=== PATIENT | female | born 1945 | race Caucasian/White ===

== ENCOUNTER 2019-11-19 10:50 | Inpatient (IN) | payer MEDICARE, OTHER ==
[~2019-11-19 10:50] MED LIST: CEFAZOLIN 2 Gram 2 GM/50 ML BAG IVPB ONE; CELECOXIB 100 MG CAPSULE PO ONE; FAMOTIDINE 20MG TABLET PO ONE; MECLIZINE 25 MG TABLET PO ONE; METOCLOPRAMIDE 10 MG TABLET PO ONE; VANCOMYCIN 1GM/200ML PREMIX 1 GM/200 ML PIGGYBACK IVPB ONE
[2019-11-19 12:01] LABS: ABO GROUP O; ANTIBODY SCREEN NEGATIVE (NEGATIVE); RH TYPE POSITIVE
[2019-11-19] MEDS ORDERED: RINGERS SOLUTION,LACTATED 1,000 ML IV ONE ×2 (12:15→13:55)
[2019-11-19] MEDS ORDERED: TRANEXAMIC ACID 1,000 MG/10 ML ML IU ONE (13:55)
[2019-11-19] MEDS ORDERED: BUPIVACAINE 0.5% W/EPI MPF 30 ML VIAL IU ONE (13:55)
[2019-11-19] MEDS ORDERED: TRANEXAMIC ACID 1,000 MG/10 ML ML IVPB ONE (13:55)
[2019-11-19] MEDS ORDERED: KETOROLAC 30 MG/ML VIAL IVP PRN (14:41)
[2019-11-19] MEDS ORDERED: HYDROMORPHONE HCL 2 MG/ML VIAL IM PRN (14:41)
[2019-11-19] MEDS ORDERED: TRAMADOL HCL 50 MG TABLET PO PRN (14:41)
[2019-11-19] MEDS ORDERED: ZOLPIDEM TARTRATE 5 MG TABLET PO PRN (14:41)
[2019-11-19] MEDS ORDERED: AL HYDROX/MAG HYDROX 30ML UD PO PRN (14:41)
[2019-11-19] MEDS ORDERED: HYDROCODONE/APAP 10/325 TABLET PO PRN (14:41)
[2019-11-19] MEDS ORDERED: BISACODYL 10 MG SUPP RC PRN (14:41)
[2019-11-19] MEDS ORDERED: DIPHENHYDRAMINE HCL 25 MG CAPSULE PO PRN (14:41)
[2019-11-19] MEDS ORDERED: ONDANSETRON HCL IV 4 MG/2 ML VIAL IVP PRN (14:41)
[2019-11-19] MEDS ORDERED: NALOXONE 0.4 MG/1 ML VIAL IVP PRN (14:41)
[2019-11-19] MEDS ORDERED: ACETAMINOPHEN 325 MG TAB PO PRN (14:41)
[2019-11-19] MEDS ORDERED: MAGNESIUM HYDROXIDE 30 ML UDC PO PRN (14:41)
[2019-11-19] MEDS: HYDROCODONE/APAP 10/325 TABLET PO PRN ×2 (16:04→23:20)
[2019-11-19] MEDS: POTASSIUM CHLORIDE/D5-0.9%NACL 20 MEQ/1,000 ML BAG IV SCH ×2 (20:37→23:00)
[2019-11-19] MEDS: CEFAZOLIN 2 Gram 2 GM/50 ML BAG IVPB SCH (20:37)
[2019-11-19] MEDS ORDERED: SIMVASTATIN 10MG TABLET PO SCH (22:00)
[2019-11-19] MEDS: DOCUSATE SODIUM 100 MG CAPSULE PO SCH (22:59)
[2019-11-20] MEDS: HYDROCODONE/APAP 10/325 TABLET PO PRN (05:13)
[2019-11-20] MEDS: CEFAZOLIN 2 Gram 2 GM/50 ML BAG IVPB SCH ×2 (05:14→12:38)
[2019-11-20 07:29] LABS: HEMATOCRIT 33.2 % (35.0-47.0); HEMOGLOBIN 10.7 gm/dl (11.6-16.0)
[2019-11-20 07:42] LABS: BLOOD UREA NITROGEN 19 mg/dL (8-23); CREATININE 0.6 mg/dL (0.5-0.9); EST GLOMERULAR FILTRATION RATE > 60 mL/min; GLUCOSE,RANDOM 186 mg/dL (74-109)
--- NOTE | 2019-11-20 09:12 | Rehab Evaluation ---
Patient Information - Patient Information Diagnosis: LEFT HIP OA Ordered Treatment: OT Evaluate and Treat Status: Initial Evaluation Surgery: Yes (left DENA 11/19/19) Past Medical/Surgical Hx: PAST MEDICAL/SURGICAL HISTORY Past Surgical History RTHA TONSILS BILAT CATARACTS PMH - Respiratory Hx Respiratory Disorders No PMH - Cardiovascular Hx Cardiovascular Disorders Yes Hx Hypertension Yes: WELL CONTROLLED WITH MEDS Exercise Tolerance Fair Comment: USES WALKER D/T HIP PAIN PMH - Neuro Hx Neurological Disorders No PMH - GI Hx Gastrointestinal Disorders No PMH - Hx Genitourinary Disorders No PMH - Endocrine Hx Endocrine Disorders Yes Hx Diabetes Yes: DX'D 2010 Hx of NIDDM Yes: DIET ONLY Comment: BLOOD SUGARS 120 OR BELOW A1C 6.7 PMH - Musculoskeletal Hx Musculoskeletal Disorders Yes Hx Arthritis Yes: HANDS, ANKLES, LEFT HIP PMH - Psych Hx Psychiatric Problems No PMH - Hematology/Oncology Hx Hematology/Oncology No Disorders Premorbid Status: Detail (Pt lives alone in a 1 1/2 story house with basement. Her laundry is in the basement. She has 2 steps onto a deck with nikolai railings and 2 steps into the kitchen with 1 railing. She has a tub/shower combination with a shower seat but no grab bars and a standard height toilet, no grab bars. She is typically Ind with all ADLs and IADLs although she has multiple friends who will be assisting her after discharge. She has a 2 wheeled walker, straight line edger and sock aid.) Precautions: [place], Fall, Other (Total hip precautions) - Time With Patient Total Time Spent With Patient (Min): 45 Treatment Procedures: Detail (OT eval low complexity) Subjective Information - Subjective Information Per Patient Objective Data - Pain Pain Present: Yes (12/08) - Mental Status Patient Orientation: Oriented x3 - Visual Perception Appears within normal limits for therapeutic activities - ROM Within normal limits (Nikolai UE AROM WNL) - Strength/Tone Within normal limits (Nikolai UE strength WNL) - Coordination Appears within normal limits for therapeutic activities - Bed Mobility Independent (Ind with supine to sit and sit to supine) - Transfers Independent (Ind with sit to stand from EOB) - Balance Balance Sitting: Good Balance Standing: Good - Sensation Intact - Gait Detail (Pt ambulating in hallway with walker and supervision.) - ADL's/IADL's Detail (Pt educated and able to demonstrate learning of modified LE dressing techniques using adaptive equipment including doffing briefs and slipper socks and donning underwear, sweatpants, socks and tennis shoes using straight line edger, sock aid and long shoe horn. Reviewed kitchen, shower and laundry safety and modifications, pt verbalized understanding.) Therapy Assessment - Therapy Assessment Detail (Pt is Ind with modified LE dressing techniques.) Problem List - Problem List Occupational Therapy Problem List: Detail (No current IP OT problems identified.) Goals - Goals Occupational Therapy Goals: No current IP OT goals identified. Prognosis - Prognosis Good Plan - Plan Occupational Therapy Plan: Pt is discharged from IP OT. Thank you for this referral.
[2019-11-20] MEDS ORDERED: DEXAMETHASONE 4 MG/ML 1ML VIAL IVP ONE (09:25)
[2019-11-20] MEDS ORDERED: ROPIVACAINE HCL (NAROPIN) /PF 5MG/ML 20ML VIAL IV ONE (09:25)
[2019-11-20] MEDS: DOCUSATE SODIUM 100 MG CAPSULE PO SCH (09:42)
[2019-11-20] MEDS: POTASSIUM CHLORIDE/D5-0.9%NACL 20 MEQ/1,000 ML BAG IV SCH (09:48)
[2019-11-20] MEDS ORDERED: FERROUS SULFATE 325 MG TAB PO SCH (10:00)
[2019-11-20] MEDS ORDERED: RIVAROXABAN 10 MG TABLET PO SCH (10:00)
[2019-11-20] MEDS ORDERED: HYDROCHLOROTHIAZIDE 12.5 MG CAPSULE PO SCH (10:00)
[2019-11-20] MEDS ORDERED: LISINOPRIL 20 MG TABLET PO SCH (10:00)
--- NOTE | 2019-11-20 12:34 | Discharge Summary ---
DATE OF ADMISSION: 11/19/2019 DATE OF DISCHARGE: 11/20/2019 DATE OF SURGERY: 11/19/2019 HISTORY: The patient is a delightful 74-year-old female who presents for end stage arthrosis of her left hip. She was admitted after left total hip arthroplasty. Postoperatively she did well. Her hospital course was unremarkable. Discharge hemoglobin was 10.7. The plan is to discharged her home in the care of her family. She was given [place] for pain and Xarelto followed by aspirin for DVT prophylaxis. Visiting nurse will remove her sutures in two weeks. She will follow-up in my office in four weeks. FINAL DIAGNOSIS: END STAGE ARTHROSIS OF THE LEFT HIP. SECONDARY DIAGNOSIS: OPERATIVE BLOOD LOSS ANEMIA. DISCHARGE CONDITION: Good. OPERATIONS AND PROCEDURES: CEMENTLESS LEFT TOTAL HIP ARTHROPLASTY. JOB NUMBER: [id number] MTDD
--- NOTE | 2019-11-20 13:01 | Operative Note ---
DATE OF SURGERY: 11/19/2019 PREOPERATIVE DIAGNOSIS: End-stage arthrosis of the left hip. POSTOPERATIVE DIAGNOSIS: End-stage arthrosis of the left hip. OPERATION: Cementless left total hip arthroplasty using Mixon and Nephew components with a size 52 no-hole Reflection cup, 32 mm diameter 35-degree offset liner, a size 15 standard-offset cementless [place] stem with a -3 cobalt chrome head. STAFF SURGEON: Ceferino Eldridge MD ANESTHESIA: Spinal. PREPARATION: Chloraprep. INDIVIDUAL CONSIDERATIONS: None. CHIEF PRIVACY OFFICER: Mrs. Stephanie Jean-Baptiste PROCEDURE: The patient was taken to the operating room, placed supine on the operating room table. She had a successful induction of spinal anesthetic. She was then placed on her side left side up, and her left leg and hip were prepped and draped in the usual fashion. The patient had a direct posterior approach to the hip. Sharp dissection carried down through skin and subcutaneous tissues. Small veins were coagulated with a Bovie. The tensor gluteal fascia was opened along the entire length of the incision, and deep retractors were placed. Short external rotators were identified, piriformis fossa and removed. This exposed the posterior capsule. Posterior capsulectomy was performed. Hip was dislocated posteriorly. The patient had basically exposed bone with marginal osteophytes. A femoral neck cut was then made about a fingerbreadth above the lesser troc using an oscillating saw. A rim capsulectomy was then performed. Starting with a 45 mm reamer to reach the medial wall, I reamed to the introitus, which was a 51 for a size 52 cup. I slightly under-reamed to 50. After irrigation, I impacted a size 52 no- hole Reflection cup in 20 degrees of forward flexion and 40 degrees of abduction. There was solid cementless fixation. A center cap screw was placed, and then again after irrigation, I impacted a size 32 mm diameter 35-degree offset liner with the offset primarily posteriorly, slightly inferiorly. This gave an excellent stable acetabular construct. The proximal femur was delivered into the wound, and box cutting osteotome was used to remove the proximal metaphyseal bone. Mid stem reaming was done to a size 15. I started feeling cortex maybe at 13. I initially did a 14 but the broach did not fit well enough proximally, so I was able to fit a 15. After calcar reaming with a standard offset -3, I had absolute stability. Full anterior stability in external rotation and extension. Full posterior stability even with 90 degrees of flexion, 90 degrees of internal rotation and even up in the knee-chest position and internal rotation. The trial was removed. It was thorough irrigated out with Betadine. I then impacted a size 15 standard-offset [place] stem with solid cementless fixation with good calcar contact. Irrigated, dried the Germán taper, impacted -3 cobalt chrome head. I reduced the hip with similar stability. The sciatic nerve was inspected and found to be completely intact. Hemostasis was obtained with a Bovie. After irrigation, I mixed 1 g of tranexamic acid with 30 mL of saline and placed this deep to the fascia. The fascia was then closed with a running #2 quill, subcu was closed with running 0 quill, skin was closed with barrington. Prior to closure, I did infiltrate the skin and subcu with 30 mL of 0.5% Marcaine with epinephrine. The patient tolerated the procedure well. Needle and sponge counts were correct. Estimated blood loss was about 400 mL. We will check a hemoglobin in the morning. There were no complications. ANNA
--- NOTE | 2019-11-20 13:35 | Rehab Evaluation ---
Patient Information - Patient Information Diagnosis: LEFT HIP OA Ordered Treatment: PT Evaluate and Treat Status: Initial Evaluation Surgery: Yes (left EDNA 11/19/19) History: Detail (Pt. has history of left hip pain secondary to OA.) Past Medical/Surgical Hx: PAST MEDICAL/SURGICAL HISTORY Past Surgical History RTHA TONSILS BILAT CATARACTS PMH - Respiratory Hx Respiratory Disorders No PMH - Cardiovascular Hx Cardiovascular Disorders Yes Hx Hypertension Yes: WELL CONTROLLED WITH MEDS Exercise Tolerance Fair Comment: USES WALKER D/T HIP PAIN PMH - Neuro Hx Neurological Disorders No PMH - GI Hx Gastrointestinal Disorders No PMH - Hx Genitourinary Disorders No PMH - Endocrine Hx Endocrine Disorders Yes Hx Diabetes Yes: DX'D 2010 Hx of NIDDM Yes: DIET ONLY Comment: BLOOD SUGARS 120 OR BELOW A1C 6.7 PMH - Musculoskeletal Hx Musculoskeletal Disorders Yes Hx Arthritis Yes: HANDS, ANKLES, LEFT HIP PMH - Psych Hx Psychiatric Problems No PMH - Hematology/Oncology Hx Hematology/Oncology No Disorders Premorbid Status: Detail (Pt lives alone in a 1 1/2 story house with basement. Her laundry is in the basement. She has 2 steps onto a deck with frida railings and 2 steps into the kitchen with 1 railing. She has a tub/shower combination with a shower seat but no grab bars and a standard height toilet, no grab bars. She is typically Ind with all ADLs and IADLs although she has multiple friends who will be assisting her after discharge. She has a 2 wheeled walker, hospital clerk and sock aid.) Social History: Detail Precautions: [place], Fall, Other (Total hip precautions) - Time With Patient Total Time Spent With Patient (Min): 30 Treatment Procedures: Detail (Physical Therapy Evaluation completed. Pt. was left supine with call light available.) Subjective Information - Subjective Information Per Patient (Pt. was alert and oriented to person, place, and time at start of tx. Pt. had 3/10 pain at start of tx.) Objective Data - Pain Pain Present: Yes Pain Scale Used: Numeric (1 - 10) - Mental Status Patient Orientation: Oriented x3 - Visual Perception Appears within normal limits for therapeutic activities - ROM Within normal limits - Strength/Tone Within normal limits - Coordination Appears within normal limits for therapeutic activities - Bed Mobility Independent - Transfers Independent (Pt. was independent with transfers, she had good body awareness of her upper torso to avoid flexion of the hip past 90 degrees when transitioning from supine to seated in bed.) - Balance Balance Sitting: Good Balance Standing: Good - Sensation Intact - Gait Detail (Pt. independently ambulated 108 feet with front wheeled walker. Pt. ascended and descended three steps independently and safely with use of front wheeled walker for support.) - ADL's/IADL's Detail (Not assessed.) - Special Tests No Therapy Assessment - Therapy Assessment Detail (Pt. was independent with bed mobility, verbalized good understanding of her hip precautions after instruction to avoid hip flexion past 90 degrees, hip adduction, and hip internal rotation (crossing leg, etc). Pt. verbailzed good understanding of LE positioning in bed with use of pillow to avoid crossing her legs. She was independent with ambulation and use of front wheeled walker for household distances and over steps.) Patient Education - Patient Education Teaching Topic: Equipment Use, Exercise/Activity, Precautions Response: Return Demonstration, Verbalize Understanding Teaching Method: Discussion Teaching Recipient: Patient Barriers To Learning: None Problem List - Problem List Physical Therapy Problem List: Detail (Pt. is independent with ambulation, bed mobility, transfers, has good understanding of her hip precautions and is appropriate for discharge from inpatient PT. She has friends in the area who will be providing her with support when needed at her home environment.) Occupational Therapy Problem List: Detail (No current IP OT problems identified.) Goals - Goals Physical Therapy Goals: No goals, pt. is to be D/C from inpatient PT. Occupational Therapy Goals: No current IP OT goals identified. Prognosis - Prognosis Good Plan - Plan Physical Therapy Plan: D/C pt. from PT. Occupational Therapy Plan: Pt is discharged from IP OT. Thank you for this referral.
[2019-11-20] MEDS ORDERED: EPHEDRINE SULFATE 50 MG/ML ML IV ONE (13:59)
[2019-11-20] MEDS ORDERED: MIDAZOLAM HCL 2MG/2ML VIAL IV ONE (13:59)
[2019-11-20] MEDS ORDERED: PROPOFOL 10 MG/ML VIAL IV ONE (13:59)
[2019-11-20] MEDS ORDERED: LIDOCAINE 2% MDV (20MG/ML) 20ML VIAL IV ONE (13:59)
== END 2019-11-20 14:00 | disposition home health service (06) | DRG 470 ==
LOC: MEDSURG 10:50
PROVIDERS: ADMIT Orthopaedic Surgery; ATTEND Orthopaedic Surgery
PROC: 0SRB06A Replacement of Left Hip Joint with Oxidized Zirconium on Polyethylene Synthetic Substitute, Uncemented, Open Approach (ICD-10-PCS; principal; 2019-11-19 13:00)
DX: M16.12 Unilateral primary osteoarthritis, left hip (principal); I10 Essential (primary) hypertension; E78.00 Pure hypercholesterolemia, unspecified; E11.9 Type 2 diabetes mellitus without complications
CPT/HCPCS: 36416; 76942; 80048; 82948; 85014; 85018; 86850; 86900; 86901; C1776; J1885; J3370; J3480; J7120